=== PATIENT | female | born 1995 | race Caucasian/White ===

== ENCOUNTER 2019-08-14 18:25 | Emergency (ER) | payer BC ==
[~2019-08-14] VITALS: Ht 165.1 cm; Wt 81.6 kg
[2019-08-14 18:29] VITALS: BP 101/67
--- NOTE | 2019-08-14 18:35 | NUR ---
pt ambulated to bathroom, steady gait.
--- NOTE | 2019-08-14 18:42 | NUR ---
23 Y/F PRESENTS TO ED FOR LUQ ABD PAIN 10/ X 1 WEEK. PT REPORTS SHE WAS SEEN AT [facility], [facility] AND EKG DONE AND D/C 2 DAYS AGO. PT REPORTS N/V AND CONSTIPATION. PT DENIES ANY DIARRHEA. LAST BM X 3 DAYS AGO. DENIES HEMATURIA, DYSURIA OR URINARY FREQUENCY. PMH- ASTHMA NKDA
--- NOTE | 2019-08-14 18:42 | NUR ---
PT AMBULATED TO CHAIR C.
--- NOTE | 2019-08-14 18:48 | NUR ---
Patient transferred to bed 6 for further care. RN re-evaluating patient at bedside.
--- NOTE | 2019-08-14 19:05 | NUR ---
Patient taken to XRAY via wheelchair by tech.
--- NOTE | 2019-08-14 19:11 | NUR ---
REPORT GIVEN TO JACKI TOMLINSON FOR CONTINUITY OF CARE
--- NOTE | 2019-08-14 19:14 | NUR ---
RECIEVED REPORT FROM DAVI CLARKE. TRANSFER OF CARE AT THIS TIME.
--- NOTE | 2019-08-14 19:16 | NUR ---
PT RETURNED FROM XRAY VIA WHEELCHAIR
[2019-08-14] MEDS ORDERED: LACTULOSE 20 GM/30 ML UDC PO ONE (20:55)
[2019-08-14 20:58] VITALS: BP 96/56
== END 2019-08-14 20:58 | disposition home or self-care (01) ==
LOC: MED 18:25
DX: K59.00 Constipation, unspecified (principal); J45.909 Unspecified asthma, uncomplicated; R10.12 Left upper quadrant pain
CPT/HCPCS: 74021; 81002; 81025; 99284